=== PATIENT | male | born 1945 | race Caucasian/White ===

== ENCOUNTER 2017-03-26 19:31 | Emergency (ER) | payer OTHER, MEDICARE ==
--- NOTE | 2017-03-26 19:35 | EDPHY ---
H & P HPI/ROS: HPI CHIEF COMPLAINT: Left knee pain, left leg pain HISTORY OF PRESENT ILLNESS: this patient is a 72-year-old male otherwise healthy only takes cluster medication daily, he presents emergency room after he slipped and fell in his garage. It was raining. Gradual was wet. He was barefoot carrying groceries in. Slipped his left leg went backwards. He landed on his back. Now has pain to the lateral aspect distal aspect left thigh and left knee. He did have head strike but denies headache or neck pain or back pain. Denies chest pain or shortness of breath. No LOC. Main complaint is left lateral distal thigh pain. States he was unable to bear weight. Past Medical History: takes cholesterol medicine Past Surgical History: denies recent surgery Social History: denies daily use drugs alcohol tobacco products Family History: noncontributory ROS REVIEW OF SYSTEMS: A comprehensive 10 point review of systems is otherwise negative aside from elements mentioned in the history of present illness. Exam Constitutional triage nursing summary reviewed, vital signs reviewed, awake/ alert. Eyes normal conjunctivae and sclera, EOMI, PERRLA. HENT normal inspection, atraumatic, moist mucus membranes, no epistaxis, neck supple/ no meningismus, no raccoon eyes. Respiratory clear to auscultation bilaterally, normal breath sounds, no respiratory distress, no wheezing. Cardiovascular rate normal, regular rhythm, no murmur, no edema, distal pulses normal. Gastrointestinal soft, non-tender, no rebound, no guarding, normal bowel sounds, no distension, no pulsatile mass. Genitourinary no CVA tenderness. Musculoskeletal left lower extremity: tender palpation distal aspect of the femur left lateral aspect of the thigh, tender palpation reproducible on exam, no obvious deformity, his left leg is distally neurovascular intact warm cap refill, good pulse. He is able to straighten his leg all the way out, no tender palpation with range of motion of the knee. no midline vertebral tenderness, full range of motion, no calf swelling, no tenderness of extremities , no meningismus, good pulses, neurovascularly intact. Skin pink, warm, & dry, no rash, skin atraumatic. Neurologic awake, alert and oriented x 3, AAOx3, moves all 4 extremities equally, motor intact, sensory intact, CN II-XII intact, normal cerebellar, normal vision, normal speech. Psychiatric normal mood/affect. Heme/Lymph/Immune no lymphadenopathy. Differential Diagnosis: includes but is not limited to in a particular order muscle tear, thigh tear, tendon injury, iliotibial band syndrome, bony abnormality, femur fracture, knee fracture, patella fracture Medical Decision Making: patient here in emergency room declined pain medicine plan will be for x-ray left femur, left knee. Most likely be placed in a knee immobilizer and crutches. Anti-inflammatory pain medicine ices thigh. Follow up with Orthopedics. Re-evaluation: ED x-ray left knee and left femur negative for acute fracture. Image interpreted by myself. 2037: This patient be placed on crutches knee immobilizer for supportive care. Orthopedic follow-up. Ice his leg. Anti-inflammatory pain medicine. Return emergency room if there is any worsening symptoms questions or concerns. Patient is comfortable this plan. His leg is neurovascular intact no acute distress. Most likely muscle spasm possible muscle tear. Compartments are soft. Source: Patient Constitutional: Initial Vital Signs Temperature (C) 36.4 C 03/26/17 19:36 Heart Rate 94 03/26/17 19:36 Respiratory Rate 16 03/26/17 19:36 Blood Pressure 158/97 H 03/26/17 19:36 O2 Sat (%) 94 03/26/17 19:36 O2 Delivery Mode Room Air Allergies/Adverse Reactions: No Known Allergies Allergy (Unverified 03/26/17 19:39) Home Medications: Medication Instructions Recorded Ibuprofen [Motrin (*)] 800 mg PO Q6-8PRN #7 tab 03/26/17 Statin 03/26/17 Departure - Departure Disposition: Home, Routine, Self-Care Clinical Impression: Thigh contusion Qualifiers: Encounter type: initial encounter Laterality: left Qualified Code(s): S70.12XA - Contusion of left thigh, initial encounter Condition: Good Instructions: Contusion in Adults (ED), Muscle Strain (ED) Additional Instructions: 1.Ice Your leg. 2. Take Anti-inflammatory pain medicine. 3. Follow up with Orthopedics if he continues to have pain. Referrals: Angel Fung MD [Medical Doctor] - As per Instructions Prescriptions: Ibuprofen [Motrin (*)] 800 mg PO Q6-8PRN #7 tab
[2017-03-26 19:43] VITALS: TEMP 97.5
[2017-03-26] MEDS ORDERED: HYDROCODONE/APAP 5/325 TAB PO ONE ×2 (20:35→20:44)
[2017-03-26] MEDS ORDERED: HYDROCOD/APAP 5/325 PREPACK#6 BTL TAKEHOME ONE (20:54)
[2017-03-26 21:05] VITALS: BP 149/93; PULSE 88; RESP 18; O2SAT 93
== END 2017-03-26 21:05 | disposition home or self-care (01) ==
LOC: CED 19:31
DX: S70.12XA Contusion of left thigh, initial encounter (principal); W01.0XXA Fall on same level from slipping, tripping and stumbling without subsequent striking against object, initial encounter; Y92.512 Supermarket, store or market as the place of occurrence of the external cause; Y99.8 Other external cause status; Y93.89 Activity, other specified
CPT/HCPCS: 73551; 73564; 99283; L1830

== ENCOUNTER → 2017-04-01 | Outpatient (CLI) | payer OTHER, MEDICARE | LOC: FIMAGING 13:16 | PROVIDERS: ATTEND Orthopaedic Surgery Sports Medicine | DX: S76.192A Other specified injury of left quadriceps muscle, fascia and tendon, initial encounter (principal); S83.242A Other tear of medial meniscus, current injury, left knee, initial encounter; M22.42 Chondromalacia patellae, left knee; M76.52 Patellar tendinitis, left knee ==

== ENCOUNTER 2017-04-19 22:37 | Observation (INO) | payer OTHER, MEDICARE ==
[2017-04-19] MEDS ORDERED: ASPIRIN 81 MG CHEWABLE TAB PO ONE (22:46)
--- NOTE | 2017-04-19 22:49 | CPEKG ---
Heart Rate: 84 RR Interval: 714 P-R Interval: 184 QRSD Interval: 106 QT Interval: 384 QTC Interval: 454 P [place]: 71 QRS [place]: 63 T Wave [place]: 26 EKG Severity - NORMAL ECG - EKG Impression: SINUS RHYTHM EKG Impression: ant/lat ST depression - cannot r/o ischemia Electronically Signed By: Sahil Garcia 19-Apr-2017 23:14:28
--- NOTE | 2017-04-19 23:05 | EDPHY ---
H & P Source: Patient Exam Limitations: No limitations - Personal History Tetanus Vaccine Date: < 10 YEARS - Medical/Surgical History Hx Asthma: No Hx Chronic Respiratory Disease: No Hx Diabetes: No Hx Cardiac Disease: No Hx Renal Disease: No Hx Cirrhosis: No Hx Alcoholism: No Hx HIV/AIDS: No Hx Splenectomy or Spleen Trauma: No Other PMH: HIGH CHOLESTEROL, APPY, HERNIA - Family History Significant Family History: No pertinent family hx - Social History Smoking Status: Never smoked Alcohol Use: Occasionally Drug Use: None <Sahil Garcia - Last Filed: 04/19/17 23:02> Stated Complaint: Chest Pain <Quentin Gasparine - Last Filed: 04/20/17 01:40> HPI/ROS: This patient presents with chest pain that he describes as achy in nature left chest in location he points with 2 fingers to the location. Is pain started around 1 o'clock this afternoon after shot of scotch in a club sandwich. The pain is been constant since peak intensity 6/10 currently 4/10 the pain seems to diminish slightly when he stands up compared to supine any a notes no other exacerbating factors. The patient has had 4 days of intermittent similar chest pains lasting up to 5 hours at a time that again seem to be worse when he supine compared the when he is upright. He recalls having a somewhat similar episode 10 years ago was diagnosed with GERD an [place] emergency department. His recent history is notable for a quadriceps muscle and tendon repair by Dr. Ritter 2 weeks ago without complications. The patient reports no recent changes in the thigh, knee or leg in terms of swelling reports the swelling is been down. However he has been resting mostly in bed for the past 2 weeks. He denies any other associated symptoms except for fatigue. ROS: Constitutional: No fevers or chills. Fatigue as above HEENT no URI symptoms or other complaints Pulmonary: No dyspnea. No cough. No pleuritic pain Cardiovascular: No heart palpitations. No new calf swelling. No lightheadedness GI: No nausea vomiting Integumentary: No diaphoresis Neuro: No numbness or tingling Endocrine: No complaints : No complaints Complete review of symptoms is otherwise negative. (Sahil Garcia) - Medical/Surgical History PMH: Dyslipidemia GERD Recent quadriceps repair as above Otherwise healthy (Sahil Garcia) - Physical Exam Exam: General Appearance: Alert, no distress. Eyes: Pupils equal and round no pallor or injection. ENT, Mouth: Mucous membranes moist. Respiratory: There are no retractions, lungs are clear to auscultation. No chest wall tenderness. Cardiovascular: Regular rate and rhythm. No murmur gallop or rub. No JVD. No significant calf edema and no calf tenderness. Gastrointestinal: Abdomen is soft and nontender, no masses, bowel sounds normal. Neurological: GCS 15 with no focal deficits. Skin: Warm and dry, no rashes. Musculoskeletal: Neck is supple nontender. Extremities are symmetrical, full range of motion. Psychiatric: Mood and affect normal DIFFERENTIAL DIAGNOSIS: After history and physical exam differential diagnosis was considered for [place], coronary syndrome, GERD, PE, pneumothorax, pneumonia, dissecting aortic aneurysm (Sahil Garcia) Constitutional: Initial Vital Signs Temperature (C) 97.2 F 04/19/17 22:40 Heart Rate 90 04/19/17 22:40 Respiratory Rate 18 04/19/17 22:40 Blood Pressure 200/112 H 04/19/17 22:40 O2 Sat (%) 95 04/19/17 22:40 O2 Delivery Mode Room Air Allergies/Adverse Reactions: No Known Allergies Allergy (Verified 04/19/17 22:55) Home Medications: Medication Instructions Recorded Aspirin 325 mg (*) 04/19/17 Lipitor 04/19/17 PRILOSEC 04/19/17 Medical Decision Making <Sahil Garcia - Last Filed: 04/19/17 23:02> - Diagnostics Imaging: Discussed imaging studies w/ electronic bench technician Radiologist <Marlyn Gaspar - Last Filed: 04/20/17 01:40> - Diagnostics EKG Interpretation: 12 lead EKG performed upon arrival at 8:26 p.m. reveals sinus rhythm at 84 Intervals: Normal throughout [place]: Normal throughout ST segments are notable for ST depression in the anterolateral leads. Overall assessment: Anterior ST depression cannot rule out ischemia Please refer to trace master for complete read. (Sahil Garcia) Imaging Results: Imaging Impressions Chest X-Ray 04/19/17 23:08 Impression: Negative frontal chest radiograph. ED Course/Re-evaluation: Aspirin prior to arrival SL IV, monitor nitroglycerin At 11:05 p.m. I discussed this case with Dr. Gaspar who will assume care for this patient and finalize disposition based on findings. (Sahil Garcia) Other Provider: This 72-year-old male with past medical history of hyperlipidemia, gastroesophageal reflux disease and recent quadriceps muscle/tendon repair presents tonight with chest pain. He was signed out to me by the offgoing provider, Dr. Doni Garcia. The patient has been having intermittent chest pain that became more constant today and localized to the left upper chest without radiation. He describes it as an ache. It fluctuates between a 3 to a 7/10 in intensity. He denies diaphoresis, lightheadedness, or shortness of breath except when he is getting in and out of the car with his recent knee brace. His 1st EKG showed ST depression in V3 through V6 which is new when compared to his preop EKG dated 04/03/2017 at [facility]. That EKG was read as normal sinus rhythm with a heart rate of 83. A copy of this outside EKG has been placed in the patient's chart. After two sublingual nitroglycerin without any change in the discomfort, a repeat EKG showed a sinus tachycardia with a heart rate of 105. The ST depression was still present but slightly less apparent, and NSTWA inferior leads. He was then given Lopressor 5 mg IV push and his heart rate returned to normal range at 70 bpm without return of the ST depression or NSTWA. His CBC and comprehensive metabolic panel as well as a lipase and magnesium were normal. His 1st troponin was within normal limits. His D-dimer was elevated. I discussed the patient with the investment counselor concrete rubber, Dr. Capellan, who states if the CT pulmonary angiogram is negative the patient should be admitted to the hospitalist service. A CT pulmonary angiogram was performed and it showed no pulmonary embolism and clear lungs. He has a tortuous aorta and vascular calcifications of the coronary arteries. Please refer to the written report when available. Patient was re-evaluated and he stated he still had some mild chest discomfort but it had now "migrated to his left scapula". A 4th EKG was done at this time which showed a normal sinus rhythm heart rate of 74 and no acute ischemic changes specifically the ST depression has not returned on the latest EKG. There is some baseline artifact in the inferior leads. The patient was given 2 mg of morphine IV push x 2 doses. The hospitalist was contacted and the patient will be transferred to the [facility] and admitted to MED/Surg OBS under Dr. Catie Carney. EXAM: Vital signs reviewed and stable General: Alert and oriented x3, slightly anxious HEENT: Normocephalic, atraumatic, pupils surgical, oropharynx clear with moist mucosa Neck: Supple, no JVD Cardiovascular: Regular rate and rhythm, no murmurs, gallops, or rubs Chest wall: Nontender to palpation Pulmonary: Lungs are clear to auscultation bilaterally without rales, rhonchi or wheezing Abdomen: Soft, nontender, nondistended; no pulsatile masses; no rebound, guarding, or rigidity Extremities: Left lower extremity has an Timbo wrap around his knee and an overlying knee brace; No obvious swelling to lower extremities. PMH: hyperlipidemia, GERD PSH: appendectomy; quadriceps muscle/tendon repair FH: no premature CAD NKDA Meds: lipitor, prilosec (viagra but over one week ago) Social: no tobacco products, occasional ETOH PCP: Dr. Homero Perales ([facility]) - Data Points Laboratory Results: Laboratory Results 04/19/17 22:58 04/19/17 22:58 04/19/17 04/19/17 04/19/17 22:58 22:58 22:58 WBC 8.39 10^3/uL 10^3/uL (3.80-9.50) RBC 5.16 10^6/uL 10^6/uL (4.40-6.38) Hgb 15.3 g/dL g/dL (13.7-17.5) Hct 45.7 % % (40.0-51.0) MCV 88.6 fL fL (81.5-99.8) MCH 29.7 pg pg (27.9-34.1) MCHC 33.5 g/dL g/dL (32.4-36.7) RDW 12.3 % % (11.5-15.2) Plt Count 317 10^3/uL 10^3/uL (150-400) MPV 8.9 fL fL (8.7-11.7) Neut % (Auto) 63.9 % % (39.3-74.2) Lymph % (Auto) 25.6 % % (15.0-45.0) [place] % (Auto) 8.2 % % (4.5-13.0) Eos % (Auto) 1.4 % % (0.6-7.6) Baso % (Auto) 0.7 % % (0.3-1.7) Nucleat RBC Rel Count 0.0 % % (0.0-0.2) Absolute Neuts (auto) 5.35 10^3/uL 10^3/uL (1.70-6.50) Absolute Lymphs (auto) 2.15 10^3/uL 10^3/uL (1.00-3.00) Absolute Monos (auto) 0.69 10^3/uL 10^3/uL (0.30-0.80) Absolute Eos (auto) 0.12 10^3/uL 10^3/uL (0.03-0.40) Absolute Basos (auto) 0.06 10^3/uL 10^3/uL (0.02-0.10) Absolute Nucleated RBC 0.00 10^3/uL 10^3/uL (0-0.01) Immature Gran % 0.2 % % (0.0-1.1) Immature Gran # 0.02 10^3/uL 10^3/uL (0.00-0.10) PT 12.9 SEC SEC (12.0-15.0) INR 1.00 (0.83-1.16) APTT 38.1 SEC H SEC (23.0-38.0) D-Dimer 1.20 ug/mLFEU H ug/mLFEU (0.00-0.50) Sodium 143 mEq/L mEq/L (134-144) Potassium 3.5 mEq/L mEq/L (3.5-5.2) Chloride 104 mEq/L mEq/L (97-110) Carbon Dioxide 22 mEq/l mEq/l (22-31) Anion Gap 17 mEq/L H mEq/L (8-16) BUN 17 mg/dL mg/dL (7-23) Creatinine 1.1 mg/dL mg/dL (0.7-1.3) Estimated GFR > 60 Glucose 121 mg/dL H mg/dL (70-100) Calcium 9.8 mg/dL mg/dL (8.5-10.4) Magnesium 2.0 mg/dL mg/dL (1.6-2.3) Total Bilirubin 0.8 mg/dL mg/dL (0.1-1.4) Conjugated Bilirubin 0.4 mg/dL mg/dL (0.0-0.5) Unconjugated Bilirubin 0.4 mg/dL mg/dL (0.0-1.1) AST 26 IU/L IU/L (17-59) ALT 44 IU/L IU/L (21-72) Alkaline Phosphatase 97 IU/L IU/L (38-126) Troponin I < 0.012 ng/mL ng/mL (0.000-0.034) Total Protein 7.4 g/dL g/dL (6.3-8.2) Albumin 4.4 g/dL g/dL (3.5-5.0) Lipase 50 IU/L IU/L (23-300) Medications Given: Nitroglycerin (Nitrostat) 0.4 mg SL Q5M PRN PRN Reason: Chest Pain Last Admin: 04/19/17 23:21 Dose: 0.4 mg Discontinued Medications Aspirin (Aspirin) 324 mg PO EDNOW ONE Stop: 04/19/17 22:47 Last Admin: 04/19/17 23:09 Dose: Not Given Metoprolol Tartrate (Lopressor Injection) 5 mg IVP EDNOW ONE Stop: 04/19/17 23:36 Last Admin: 04/19/17 23:45 Dose: 5 mg
[2017-04-19] MEDS ORDERED: NITROGLYCERIN 0.4 MG BTL SL ONE (23:07)
[2017-04-19 23:10] LABS: % IMMATURE GRANULYOCYTES 0.2 % (0.0-1.1); ABSOLUTE IMMATURE GRANULOCYTES 0.02 10^3/uL (0.00-0.10); ADD DIFF? NO; ADD MORPH? NO; ADD SCAN? NO; ATYPICAL LYMPHOCYTE FLAG 0 (0-99); FRAGMENT RBC FLAG 0 (0-99); HEMATOCRIT 45.7 % (40.0-51.0); HEMOGLOBIN 15.3 g/dL (13.7-17.5); LEFT SHIFT FLG 0 (0-99); LIPEMIA HEMOLYSIS FLAG 80 (0-99); MEAN CELL HEMOGLOBIN 29.7 pg (27.9-34.1); MEAN CELL HEMOGLOBIN CONCENTR. 33.5 g/dL (32.4-36.7); MEAN CELL VOLUME 88.6 fL (81.5-99.8); MEAN PLATELET VOLUME 8.9 fL (8.7-11.7); PLATELET CLUMPS FLAG 10 (0-99); PLATELET COUNT 317 10^3/uL (150-400); RED BLOOD CELL COUNT 5.16 10^6/uL (4.40-6.38); RED CELL DISTRIBUTION WIDTH 12.3 % (11.5-15.2)
[2017-04-19] MEDS ORDERED: NITROGLYCERIN 0.4 MG BTL SL PRN (23:12)
[2017-04-19 23:26] LABS: ALANINE AMINOTRANSFERASE 44 IU/L (21-72); ALBUMIN 4.4 g/dL (3.5-5.0); ALKALINE PHOSPHATASE 97 IU/L (38-126); ANION GAP 17 mEq/L (8-16); ASPARTATE AMINOTRANSFERASE 26 IU/L (17-59); BILIRUBIN,TOTAL 0.8 mg/dL (0.1-1.4); BILIRUBIN-CONJUGATED 0.4 mg/dL (0.0-0.5); BILIRUBIN-UNCONJUGATED 0.4 mg/dL (0.0-1.1); CALCIUM 9.8 mg/dL (8.5-10.4); CARBON DIOXIDE 22 mEq/l (22-31); CHLORIDE 104 mEq/L (97-110); CREATININE 1.1 mg/dL (0.7-1.3); GLOMERULAR FILTRATION RATE > 60; GLUCOSE 121 mg/dL (70-100); POTASSIUM 3.5 mEq/L (3.5-5.2); SODIUM 143 mEq/L (134-144); TOTAL PROTEIN 7.4 g/dL (6.3-8.2)
[2017-04-19 23:34] LABS: PROTIME(PATIENT) 12.9 SEC (12.0-15.0)
[2017-04-19 23:35] LABS: APTT 38.1 SEC (23.0-38.0)
[2017-04-19] MEDS ORDERED: METOPROLOL TARTRATE 5 MG/5 ML INJ IVP ONE (23:35)
[2017-04-19 23:37] LABS: TROPONIN I < 0.012 ng/mL (0.000-0.034)
--- NOTE | 2017-04-19 23:39 | CPEKG ---
Heart Rate: 105 RR Interval: 571 P-R Interval: 172 QRSD Interval: 104 QT Interval: 356 QTC Interval: 471 P [place]: 63 QRS [place]: 75 T Wave [place]: -7 EKG Severity - ABNORMAL ECG - EKG Impression: SINUS TACHYCARDIA EKG Impression: NONSPECIFIC T ABNORMALITIES, INFERIOR LEADS Electronically Signed By: Marlyn Gaspar 20-Apr-2017 02:41:20
--- NOTE | 2017-04-19 23:58 | CPEKG ---
Heart Rate: 70 RR Interval: 857 P-R Interval: 196 QRSD Interval: 100 QT Interval: 396 QTC Interval: 428 P [place]: 58 QRS [place]: 60 T Wave [place]: 39 EKG Severity - NORMAL ECG - EKG Impression: SINUS RHYTHM Electronically Signed By: Marlyn Gaspar 20-Apr-2017 02:42:18
[2017-04-20] MEDS ORDERED: IOPAMIDOL (ISOVUE 370) 100 ML BTL IV ONE (00:06)
--- NOTE | 2017-04-20 01:12 | CPEKG ---
Heart Rate: 74 RR Interval: 811 P-R Interval: 196 QRSD Interval: 106 QT Interval: 416 QTC Interval: 462 P [place]: 40 QRS [place]: 65 T Wave [place]: 33 EKG Severity - NORMAL ECG - EKG Impression: SINUS RHYTHM Electronically Signed By: Marlyn Gaspar 20-Apr-2017 02:39:38
[2017-04-20] MEDS ORDERED: NS 1,000 ML IV ONE (01:24)
[2017-04-20] MEDS ORDERED: CYCLOBENZAPRINE 10 MG TAB PO PRN (03:15)
[2017-04-20] MEDS ORDERED: ACETAMINOPHEN 325 MG TAB PO PRN (03:16)
[2017-04-20] MEDS ORDERED: ONDANSETRON 4 MG/2 ML VIAL IVP PRN (03:16)
[2017-04-20] MEDS ORDERED: KETOROLAC 15 MG/1 ML SDV IVP PRN (03:16)
[2017-04-20] MEDS: oxyCODONE IR 5 MG TAB PO PRN (03:24)
--- NOTE | 2017-04-20 03:49 | GHP ---
[f rep st] HISTORY AND PHYSICAL DATE OF ADMISSION: 04/20/2017 CHIEF COMPLAINT: Chest pain. HISTORY: The patient is a 72-year-old male, who comes in with a chief complaint of left-sided chest pain. It radiates to his shoulder blade. It comes and goes in waves. Episode today started at 1 o' clock in the afternoon, but he has had less severe similar episodes off and on for the last 4 days. The current pain is currently 3/10. While I am in the room, he would have spasms of pain that would cause him to jump. There is no shortness of breath. Two weeks ago he underwent a quad muscle tendon repair with Dr. Ritter. He went from being very activ e at baseline to being mostly lying in bed for the last 2 weeks. He gets up with crutches only. PAST MEDICAL HISTORY: 1. Hyperlipidemia. 2. Peptic ulcer disease. PAST SURGICAL HISTORY: Appendectomy, hernia repair. MEDICATIONS: Please see computer record for full detailed list. ALLERGIES: No known drug allergies. SOCIAL HISTORY: Quit smoking 40 years ago. He drinks alcohol socially. He lives with his . REVIEW OF SYSTEMS: Complete review of systems obtained. Review of systems is negative regarding con stitutional, HEENT, GI, pulmonary, cardiovascular, , hematology, skin, musculoskeletal, endocrine, psych, except for positives and negatives as noted in HPI. FAMILY HISTORY: Mom lived to age 94, dad to age 88. There is no history of early coronary artery di sease. PHYSICAL EXAMINATION: GENERAL: Well-developed, well-nourished male, in no distress. VITAL SIGNS: Temperature 36.6, pulse 92, blood pressure 116/84, saturating 92% on room air. EYES: Normal conjunc tivae. Pupils equal, round, reactive to light. ENT: Normal ears and nose. Hearing intact. Normal lips and teeth. Oropharynx moist. NECK: Trachea midline. No thyromegaly. CHEST: Normal respira tory effort. LUNGS: Clear to auscultation bilaterally. CARDIOVASCULAR: Regular rate and rhythm. No murmur. No lower extremity edema. ABDOMEN: Soft. Nontender. No hepatosplenomegaly. SKIN: Wa rm, dry, intact without rash. MUSCULOSKELETAL: No cyanosis or clubbing. Strength 5/5 upper and low er extremities. Left leg knee is in a brace. NEUROLOGIC: Cranial nerves intact. Normal sensation to light touch. PSYCH: Alert and oriented x3. Normal affect. Normal judgment. Normal insight. N ormal memory. LABORATORY DATA: White count 8.39, hematocrit 45.7, platelets 317. Sodium 143, potassium 3.5, chlor humera 104, bicarb 22, BUN 17, creatinine 1.1. Glucose 121. LFTs are negative. Troponins negative. D -dimer is 1.2. IMAGING DATA: Chest x-ray is negative. EKG reviewed by me. My personal interpretation is normal si nus rhythm. There are some anterior lateral ST depressions on his first EKG. These are not apparent on follow-up EKGs. CT angiogram of chest is negative for PE. This case was discussed with Marlyn Gaspar in the emergency room. She spoke with Dr. Capellan, and Dr. Capellan is aware of the fact t he patient is not completely chest pain-free but he requested admit to hospitalist medicine and did n ot have any intention to cath this evening. ASSESSMENT AND PLAN: 1. Chest pain. His only risk factor is hyperlipidemia. Clinically, I would suspect a muscle spasm secondary to his recent use of crutches more than coronary ischemia, but he did have some ST depressi on on his first EKG on arrival the emergency, which is different from the other EKGs. Follow-up EKGs have showed this change to be resolved. Will follow serial troponins and EKGs. If troponins remain negative, will order a Lexiscan stress test for the morning. 2. Quad muscle tendon repair. Will consult PT/OT. 3. Hyperlipidemia. Will check a lipid panel on his current Lipitor dose. CODE STATUS: Full. ADMISSION STATUS: Will admit to observation. Discharge home tomorrow if stress test is negative. DEEP VEIN THROMBOSIS PROPHYLAXIS: He is high risk. Will place him on subcu Lovenox. /[id number]/MODL
[2017-04-20 06:43] LABS: CHOLESTEROL 149 mg/dL (140-220); CHOLESTEROL/HDL RATIO 2.81 RATIO (1.00-4.97); HIGH DENSITY LIPOPROTEIN 53 mg/dL (40-65); LDL/HDL RATIO 1.55 RATIO (1.00-3.64); LOW DENSITY LIPOPROTEIN 82 mg/dL (80-100); NON-HIGH DENSITY LIPOPROTEIN 96 mg/dL (90-129); TRIGLYCERIDE 71 mg/dL (40-150); VERY LOW DENSITY LIPOPROTEINS 14 mg/dL (8-25)
[2017-04-20 06:53] LABS: TROPONIN I < 0.012 ng/mL (0.000-0.034)
--- NOTE | 2017-04-20 08:15 | CPEKG ---
Heart Rate: 85 RR Interval: 706 P-R Interval: 216 QRSD Interval: 106 QT Interval: 388 QTC Interval: 462 P [place]: 43 QRS [place]: 46 T Wave [place]: -1 EKG Severity - BORDERLINE ECG - EKG Impression: SINUS RHYTHM EKG Impression: BORDERLINE T ABNORMALITIES, INFERIOR LEADS Electronically Signed By: Albert Le 20-Apr-2017 08:31:54
[2017-04-20] MEDS: ENOXAPARIN 40 MG/0.4 ML SYR SC SCH (08:41)
--- NOTE | 2017-04-20 09:17 | PDCARCONS ---
Cardiology Consult Reason for Consult: Chest pain Chief Complaint: Chest pain Requesting Physician: Dr. Carney History of Present Illness: 72 yr male with no prior cardiac history. I visited with him on [facility], his was present for this discussion. He recently drove from [place] to [place] to [place]. He slipped and fell in his garage and had to have L knee meniscus surgery. For the past 2 days he has been complaining of chest pain. This is constant and there is tenderness along the L deltopectoral groove. There is no change in pain with inspiration. He has been walking around with crutches and also using his upper body more than usual to transport himself around [place] in the bathroom. History Information - Allergies/Home Medication List Allergies/Adverse Reactions: No Known Allergies Allergy (Verified 04/19/17 22:55) Home Medications: Aspirin 325 mg (*) 04/19/17 [Last Taken Unknown] Lipitor 04/19/17 [Last Taken Unknown] PRILOSEC 04/19/17 [Last Taken Unknown] I have personally reviewed and updated: family history, medical history, social history (Smoked cigarettes x 5 y in college, smoked pipe 15 yrs after that), surgical history Past Medical History: - Past Medical History hyperlipidemia Additional medical history: Borderline elevated LDL per patient (also reports that HDL is high). Duodenal ulcer in college. Colon polyps - Surgical History Reports: appendectomy, hernia repair - Social History Smoking Status: Never smoked Alcohol Use: Occasionally Drug Use: None Physical Exam Physical Exam: Temp Pulse Resp BP Pulse Ox 36.8 C 90 16 160/109 H 96 04/20/17 07:53 04/20/17 07:53 04/20/17 07:53 04/20/17 07:53 04/20/17 07:53 Constitutional: no apparent distress, appears nourished Eyes: PERRL, anicteric sclera, EOMI Ears, Nose, Mouth, Throat: hearing normal, ears appear normal Cardiovascular: regular rate and rhythym, no murmur, rub, or gallop Respiratory: no respiratory distress, clear to auscultation Gastrointestinal: soft, non-tender abdomen Skin: warm Neurologic: AAOx3 Psychiatric: interacting appropriately, not anxious, not encephalopathic Lab and Imaging 04/19/17 22:58 04/19/17 22:58 WBC 8.39 10^3/uL (3.80-9.50) 04/19/17 22:58 RBC 5.16 10^6/uL (4.40-6.38) 04/19/17 22:58 Hgb 15.3 g/dL (13.7-17.5) 04/19/17 22:58 Hct 45.7 % (40.0-51.0) 04/19/17 22:58 MCV 88.6 fL (81.5-99.8) 04/19/17 22:58 MCH 29.7 pg (27.9-34.1) 04/19/17 22:58 MCHC 33.5 g/dL (32.4-36.7) 04/19/17 22:58 RDW 12.3 % (11.5-15.2) 04/19/17 22:58 Plt Count 317 10^3/uL (150-400) 04/19/17 22:58 MPV 8.9 fL (8.7-11.7) 04/19/17 22:58 Neut % (Auto) 63.9 % (39.3-74.2) 04/19/17 22:58 Lymph % (Auto) 25.6 % (15.0-45.0) 04/19/17 22:58 [place] % (Auto) 8.2 % (4.5-13.0) 04/19/17 22:58 Eos % (Auto) 1.4 % (0.6-7.6) 04/19/17 22:58 Baso % (Auto) 0.7 % (0.3-1.7) 04/19/17 22:58 Nucleat RBC Rel Count 0.0 % (0.0-0.2) 04/19/17 22:58 Absolute Neuts (auto) 5.35 10^3/uL (1.70-6.50) 04/19/17 22:58 Absolute Lymphs (auto) 2.15 10^3/uL (1.00-3.00) 04/19/17 22:58 Absolute Monos (auto) 0.69 10^3/uL (0.30-0.80) 04/19/17 22:58 Absolute Eos (auto) 0.12 10^3/uL (0.03-0.40) 04/19/17 22:58 Absolute Basos (auto) 0.06 10^3/uL (0.02-0.10) 04/19/17 22:58 Absolute Nucleated RBC 0.00 10^3/uL (0-0.01) 04/19/17 22:58 Immature Gran % 0.2 % (0.0-1.1) 04/19/17 22:58 Immature Gran # 0.02 10^3/uL (0.00-0.10) 04/19/17 22:58 PT 12.9 SEC (12.0-15.0) 04/19/17 22:58 INR 1.00 (0.83-1.16) 04/19/17 22:58 APTT 38.1 SEC (23.0-38.0) H 04/19/17 22:58 D-Dimer 1.20 ug/mLFEU (0.00-0.50) H 04/19/17 22:58 Sodium 143 mEq/L (134-144) 04/19/17 22:58 Potassium 3.5 mEq/L (3.5-5.2) 04/19/17 22:58 Chloride 104 mEq/L (97-110) 04/19/17 22:58 Carbon Dioxide 22 mEq/l (22-31) 04/19/17 22:58 Anion Gap 17 mEq/L (8-16) H 04/19/17 22:58 BUN 17 mg/dL (7-23) 04/19/17 22:58 Creatinine 1.1 mg/dL (0.7-1.3) 04/19/17 22:58 Estimated GFR > 60 04/19/17 22:58 Glucose 121 mg/dL (70-100) H 04/19/17 22:58 Calcium 9.8 mg/dL (8.5-10.4) 04/19/17 22:58 Magnesium 2.0 mg/dL (1.6-2.3) 04/19/17 22:58 Total Bilirubin 0.8 mg/dL (0.1-1.4) 04/19/17 22:58 Conjugated Bilirubin 0.4 mg/dL (0.0-0.5) 04/19/17 22:58 Unconjugated Bilirubin 0.4 mg/dL (0.0-1.1) 04/19/17 22:58 AST 26 IU/L (17-59) 04/19/17 22:58 ALT 44 IU/L (21-72) 04/19/17 22:58 Alkaline Phosphatase 97 IU/L (38-126) 04/19/17 22:58 Troponin I < 0.012 ng/mL (0.000-0.034) 04/20/17 05:50 Total Protein 7.4 g/dL (6.3-8.2) 04/19/17 22:58 Albumin 4.4 g/dL (3.5-5.0) 04/19/17 22:58 Triglycerides 71 mg/dL (40-150) 04/20/17 05:50 Cholesterol 149 mg/dL (140-220) 04/20/17 05:50 Cholesterol Risk Factr 0.5 (0.2-1.0) 04/20/17 05:50 LDL Cholesterol, Calc 82 mg/dL (80-100) 04/20/17 05:50 LDL Risk Factor 0.8 (0.2-1.0) 04/20/17 05:50 VLDL Cholesterol 14 mg/dL (8-25) 04/20/17 05:50 Non-HDL Cholesterol 96 mg/dL (90-129) 04/20/17 05:50 HDL Cholesterol 53 mg/dL (40-65) 04/20/17 05:50 LDL/HDL Ratio 1.55 RATIO (1.00-3.64) 04/20/17 05:50 Cholesterol/HDL Ratio 2.81 RATIO (1.00-4.97) 04/20/17 05:50 Lipase 50 IU/L (23-300) 04/19/17 22:58 Visualized and Interpreted Chest x-ray results: Yes Visualized and Interpreted EKG results: Yes EKG Interpretation: Positive for: normal sinsus rhythm, NS ST wave abnormalities EKG additional interpertation: First ECG showed ST depression in V2-V3, this resolved in subsequent ECG Telemetry: NSR A/P Assessment: 1. Recent knee surgery and recent prolonged driving (4K miles) 2. Chest pain Plan: 72 yr M with h/o borderline LDL elevation, recent knee surgery, drove >4K miles recently. Presented with chest pain. Chest pain is constant for the last 2 days, and there is tenderness (reproducible by patient and myself) along upper aspect of L deltopectoral groove. This is c.w. musculoskeletal pain. He exercises daily (has not for 1 month) and with a 25 mile bike ride and 2 hrs in the gym he has not had chest discomfort. -he has ruled out for PE by CT scan -he has ruled out for DC by cardiac markers -given risk factors and NSSTT changes will perform MPI stress test this AM -check echocardiogram
[2017-04-20] MEDS ORDERED: REGADENOSON 0.4 MG/5 ML SYR IVP ONE (10:33)
--- NOTE | 2017-04-20 11:07 | ECHO ---
[id number] + + [address] : : [place] [address] : : [phone] + + Adult Echocardiographic Report + ----+ :Name: MELODY ROSScarlosharsha Date: 04/20/2017 10:20 AM : : Hospital Admission Number: [id number] Location: 221: :: 1945 Gender: Male Height: 76 in : :Age: 72 yrs Race: WH Weight: 225 lb : :Reason For Study: Eval LV Fx : : BSA: 2.3 meters2 : :History: Chest Pain : + ----+ MMode/2D Measurements & Calculations IVSd: 0.89 cm LVIDd: 4.3 cm FS: 39.1 % Ao root diam: 3.4 cm LVPWd: 0.98 cm LVIDs: 2.6 cm EDV(Teich): 82.8 ml ACS: 1.9 cm ESV(Teich): 25.0 ml EF(Teich): 69.8 % Normal Measurement Values: + + :LVIDd (3.5-5.7cm) IVSd (0.6-1.1cm) LVPWd (0.6-1.1cm) Aortic Root (2.0-3.7cm)Left Atrium (1.5-4.0cm): :LV Vol(d) (76-115ml) LV Vol(s) (29-48ml) Ejec Fraction (50-65%)PV Michael (0.6- 1.2m/s) TV Michael (0.4-1.0m/s) : :MV E Michael (0.8-1.0m/s)MV A Michael (0.3-1.0m/s)LVOT Michael (0.7-1.2m/s) Asc Ao Michael ( 0.9-1.8m/s) : + + Doppler Measurements & Calculations MV E max michael: Ao V2 max: LV V1 max: PA V2 max: 59.7 cm/sec 127.6 cm/sec 112.0 cm/sec 105.9 cm/sec MV A max michael: Ao max PG: LV V1 max PG: PA max P.0 cm/sec 6.5 mmHg 5.0 mmHg 4.5 mmHg MV E/A: 0.79 Left Ventricle The left ventricle is normal in size. There is normal left ventricular wall thickness. The left ventricular ejection fraction is normal. There is Doppler evidence for diastolic dysfunction. Ejection Fraction = 69%. No regional wall motion abnormalities noted. Right Ventricle The right ventricle is normal in size and function. Atria The left atrial size is normal. Right atrial size is normal. Mitral Valve The mitral valve is normal in structure and function. There is no mitral valve stenosis. There is no mitral regurgitation noted. Tricuspid Valve Normal tricuspid valve. There is trace tricuspid regurgitation. Aortic Valve The aortic valve is normal in structure and function. There is no aortic stenosis. There is no aortic insufficiency. Pulmonic Valve The pulmonic valve is normal in structure and function. There is no pulmonic valvular regurgitation. Great Vessels The aortic root is normal size. Pericardium/Pleural There is no pericardial effusion. There is a fat pad seen. Conclusion A complete two-dimensional transthoracic echocardiogram was performed (2D, M-mode, Doppler and color flow Doppler). The left ventricular ejection fraction is normal. There is Doppler evidence for diastolic dysfunction. Ejection Fraction = 69%. No regional wall motion abnormalities noted. Normal appearing valves. There is trace tricuspid regurgitation. There is no pericardial effusion. There is a fat pad seen. Final Reading Physician: Kelsy Kramer signed on 04/20/2017 11:05 AM Ordering Physician: Albert Le Performed By: Jay Varela, CS
--- NOTE | 2017-04-20 11:54 | CPR ---
[f rep st] NONINVASIVE CARDIAC PROCEDURE REPORT DATE OF PROCEDURE: 04/20/2017 PROCEDURE PERFORMED: Lexiscan nuclear stress test. INDICATION FOR PROCEDURE: A 72-year-old male with no previous cardiac history who presents to the [facility] with atypical left upper chest discomfort that has been reproducible to palpation. He recentl y had knee surgery. Therefore, a chest CT angiogram was performed that was negative for pulmonary em boli but did show coronary artery calcification. His troponins have been negative x2. Nuclear stres s imaging is being performed to rule out critical coronary artery stenosis. DESCRIPTION OF PROCEDURE: Informed consent was obtained. Baseline heart rate, blood pressure, and 1 2-lead EKG were performed in the supine position with intermittent blood pressures taken every 2 lenka arin during the stress portion of the test. Lexiscan and sestamibi were injected by standard protocol . The patient was observed for an additional 5 minutes in recovery. FINDINGS: Baseline heart rate 82 beats per minute, baseline blood pressure 173/114 mmHg. Baseline E KG shows normal sinus rhythm at 82 beats per minute with normal QRS axis and intervals. Following in jection of Lexiscan, the patient's heart rate increased to 95 beats per minute with a blood pressure of 173/99 mmHg at the end of the test. There were no ischemic EKG changes throughout the test. The patient complained of slight flushing feeling and slight increased work of breathing along with some numbness and tingling in his arms and legs which resolved in the recovery state. Oxygen saturation r emained greater than 90%. IMPRESSION: 1. Unremarkable Lexiscan nuclear stress test. 2. Systolic and diastolic hypertension. 3. Coronary artery calcifications by chest CT angiogram. 4. History of tobacco abuse. 5. Hyperlipidemia that is treated with low-dose atorvastatin. PLAN: 1. The patient will be sent down for stress imaging. If abnormal, then rest imaging will subsequent ly be performed at a later date. 2. The patient has been recommended to get an ambulatory blood pressure cuff and keep a log for the next few weeks. He is to follow up with his primary care provider or [facility] to discuss risk f actor management following hospital discharge. /[id number]/MODL
--- NOTE | 2017-04-20 14:44 | HOSPPROG ---
Hospitalist Progress Note Assessment/Plan: * cp * clearly musculoskeletal but can have co-exisiting CAD * inf wall defect on stress * needs rest image *left quad rupture Subjective: left cp - shoulder tenderness Objective: Vital Signs Temp Pulse Resp BP Pulse Ox 36.8 C 86 16 160/109 H 96 04/20/17 07:53 04/20/17 12:00 04/20/17 12:00 04/20/17 07:53 04/20/17 12:00 04/19/17 04/20/17 04/21/17 05:59 05:59 05:59 Intake Total 1000 Balance 1000 PT 12.9 SEC (12.0-15.0) 04/19/17 22:58 INR 1.00 (0.83-1.16) 04/19/17 22:58 - Physical Exam Constitutional: no apparent distress, appears nourished, not in pain Eyes: anicteric sclera, EOMI Ears, Nose, Mouth, Throat: moist mucous membranes, hearing normal Cardiovascular: regular rate and rhythym, no murmur, rub, or gallop, other ( esquisite point tenderness left shoulder) Skin: warm Neurologic: AAOx3 Psychiatric: interacting appropriately, not anxious, not encephalopathic, thought process linear ICD10 Worksheet Patient Problems: Problems Problem Status Onset Chest pain Acute - ICD10 Problem Qualifiers (1) Chest pain
[2017-04-21] MEDS: oxyCODONE IR 5 MG TAB PO PRN ×2 (04:54→14:01)
[2017-04-21 07:30] VITALS: RESP 16
[2017-04-21] MEDS: ENOXAPARIN 40 MG/0.4 ML SYR SC SCH (08:09)
--- NOTE | 2017-04-21 09:08 | PDCARPN ---
Cardiology Progress Note Chief Complaint: Chest pain Assessment/Plan: Assessment: 1. Musculoskeletal CP 2. HTN, likely white-coat Plan: 1. Stress images with inferior defect. Rest images today. I d.w. pt and that his CP is not cardiac, but given his age/male sex/smoking history CAD is possible. If ischemia is demonstrated, would consider cor angiogram 2. Pt to keep BP log and submit to PCP 04/21/17 09:05 Subjective: c/o persistent CP and tenderness, now is more medial than last night. Mild in severity. Reviewed/Discussed With: family Time Spent With Patient: 15 min Objective: Vital Signs (8 Hrs) Temp Pulse Resp BP Pulse Ox 04/21/17 07:30 37.0 C 68 16 143/92 H 95 04/21/17 04:00 36.7 C 69 10 L 161/96 H 96 Intake/Output (24 Hrs) 04/19/17 04/20/17 04/21/17 11:59 11:59 11:59 Intake Total 1000 225 Balance 1000 225 Intake: Oral (ml) 225 IV Infused (ml) 1000 Other: Weight 102.058 kg Intake Quantity Yes Sufficient Number of Voids 0 Toilet 1 4 Result Diagrams: 04/19/17 22:58 04/19/17 22:58 Cardiac Labs: Cardiac Lab Results (72 Hrs) 04/20/17 04/20/17 11:46 05:50 Troponin I < 0.012 < 0.012 Telemetry: NSR ICD10 Worksheet Patient Problems: Problems Problem Status Onset Chest pain Acute - ICD10 Problem Qualifiers (1) Chest pain
[2017-04-21] MEDS ORDERED: PANTOPRAZOLE SODIUM 40 MG TAB PO SCH (09:15)
[2017-04-21 11:43] VITALS: BP 142/93; PULSE 80; TEMP 98.4; O2SAT 93
--- NOTE | 2017-04-21 14:52 | GDS ---
[f rep st] DISCHARGE SUMMARY DISCHARGE DIAGNOSES: 1. Musculoskeletal chest pain. 2. Elevated blood pressure. 3. Coronary calcifications on CT scan. HISTORY: This is a 72-year-old male, who presented with chest pain. Recently severed his quadriceps tendon and has been on crutches, which he was not using properly, and developed pain that was reprod ucible in his chest. He did have slight ST-segment changes on admission, but no further EKGs showed that. HOSPITAL COURSE: The patient's troponins were negative x3. He underwent stress testing. He did req uire 2 nights because stress testing was required. This stress test was negative. He is being disch arged home to follow up with primary care doctor. He has been instructed to measure his blood pressu re and journal it. /[id number]/MODL
--- NOTE | 2017-04-21 17:08 | ASMTCMCOM ---
CM Note CM Note Notes: 72 year old male admitted for chest pain. [employer] thinking its musculoskeletal w/CAD. Patient given DODSON form to sign. Patient lives with his . He may possibly need out-patient therapy. Date Signed: 04/21/2017 01:12 PM Electronically Signed By:Lakeshia Yepez
== END 2017-04-21 16:15 | disposition home or self-care (01) ==
LOC: CED 22:37 → F2W 04-20 02:28
PROVIDERS: ADMIT Internal Medicine; ATTEND Internal Medicine
DX: R07.89 Other chest pain (principal); R03.0 Elevated blood-pressure reading, without diagnosis of hypertension; I25.10 Atherosclerotic heart disease of native coronary artery without angina pectoris
CPT/HCPCS: 71010; 71275; 78452; 93005; 93017; 93306; 97116; 97161; 97165; A9500; G0378; G8978; G8979; G8987; G8988; G8989; J1650; J1885; J2785; Q9967; 80048-PO; 80076-PO; 83690-PO; 83735-PO; 84484-PO; 85025-PO; 85378-PO; 85610-PO; 85730-PO

== ENCOUNTER → 2017-05-06 | Outpatient (CLI) | payer OTHER, MEDICARE ==
[~2017-05-06] MED LIST: GADOBUTROL 10 ML VIAL IVP ONE
== END ==
LOC: FIMAGING 07:47
PROVIDERS: ATTEND Urology
DX: N40.0 Benign prostatic hyperplasia without lower urinary tract symptoms (principal)
CPT/HCPCS: 72197; 76377; A9585